=== PATIENT | female | born 1965 | race American Indian/Alaskan Native ===

== ENCOUNTER 2017-12-24 06:18 | Day surgery (SDC) | payer BC ==
--- NOTE | 2017-12-24 07:53 | CP.SDSHP ---
Same Day Surgery H & P - History Proposed Procedure: COLONSCOPY Pre-Op Diagnosis: SEE NOTES - Previous Medical/Surgical History Cardiac: Hypertension Pulmonary: Asthma Misc: Other Pain: 4.Moderate Pain - Allergies Allergies: Allergies No Known Allergies Allergy (Verified 12/24/17 06:53) - Physical Exam General Appearance: N Vital Signs: Vital Signs 12/24/17 06:45 Temperature 98.6 F Pulse Rate 80 Respiratory 20 Rate Blood Pressure 154/90 H O2 Sat by Pulse 98 Oximetry Mental Status: Alert & Oriented x3 Neuro: WNL Heart: Other Lungs: Other GI: WNL - {Optional Preform as Required} Breast: WNL Abdomen: Other Rectal: Other Integument: WNL : WNL Ortho: WNL ENT: WNL - Impression Pt. Evaluated Today:Candidate for Anesthesia & Procedure: Yes - Date & Time Time: 07:53 Short Stay Discharge - Short Stay Discharge Admitting Diagnosis/Reason for Visit: RECTAL BLEEDING, CHANGE OF BOWEL HABITS Disposition: HOME/ ROUTINE
[2017-12-24] MEDS ORDERED: Propofol 10 mg/ml Inj (20 ML) ONE (08:05)
[2017-12-24 08:42] VITALS: TEMP 98.4; O2SAT 100
[2017-12-24] MEDS ORDERED: Belladonna-Phenobarbital PO ONE (08:45)
[2017-12-24 09:03] VITALS: RESP 17
[2017-12-24 10:38] VITALS: BP 143/88; PULSE 82
== END 2017-12-24 10:14 | disposition home or self-care (01) ==
LOC: C.ENDO 06:18
PROVIDERS: ATTEND Specialist
DX: K62.5 Hemorrhage of anus and rectum (principal); R19.4 Change in bowel habit; K60.2 Anal fissure, unspecified; K57.30 Diverticulosis of large intestine without perforation or abscess without bleeding
CPT/HCPCS: 45380; 84703; 88305; J2001; J2704